=== PATIENT | female | born 1980 | race Caucasian/White ===

== ENCOUNTER 2018-09-03 12:17 | Emergency (ER) | payer BC ==
--- NOTE | 2018-09-03 13:49 | RAD REPORT ---
EXAM DESCRIPTION: US - Extremity Venous Uni Ltd - 09/03/2018 1:38 pm CLINICAL HISTORY: Pain;Swelling Leg swelling and edema. COMPARISON: No comparisons FINDINGS: Right lower extremity venous system was interrogated with Doppler technique. Normal flow, compressibility and augmentation was noted. There is no DVT present. IMPRESSION: No evidence of right lower extremity deep venous thrombosis.
--- NOTE | 2018-09-03 14:48 | ER ---
Nurse's Notes [facility] Name: Gloria Davidson Age: 37 yrs Sex: Female : 1980 Arrival Date: 09/03/2018 Time: 12:23 Bed 10 Private MD: None, None Diagnosis: Pain in right lower leg Presentation: 09/03 12:43 Presenting complaint: Patient states: right calf pain that began 2-3 days ago. Pt aa5 states "I think I have a blood clot". Pt states "I took a road trip to [place] and back". Transition of care: patient was not received from another setting of care. Onset of symptoms was August 2018. Risk Assessment: Do you want to hurt yourself or someone else? Patient reports no desire to harm self or others. Initial Sepsis Screen: Does the patient meet any 2 criteria? No. Patient's initial sepsis screen is negative. Does the patient have a suspected source of infection? No. Patient's initial sepsis screen is negative. Care prior to arrival: None. 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 - Social history:: Smoking status: Patient/guardian denies using tobacco. - Ebola Screening: : No symptoms or risks identified at this time. - Family history:: not pertinent. - Hospitalizations: : No recent hospitalization is reported. Screenin:17 Abuse screen: Denies threats or abuse. Nutritional screening: No deficits noted. la1 Tuberculosis screening: No symptoms or risk factors identified. Fall Risk None identified. Assessment: 14:16 General: Appears in no apparent distress. Behavior is calm, cooperative. Pain: Denies la1 pain. Neuro: Level of Consciousness is awake, alert, obeys commands, Oriented to person, place, time, situation. Cardiovascular: Capillary refill < 3 seconds Patient's skin is warm and dry. Respiratory: Airway is patent Respiratory effort is even, unlabored, Respiratory pattern is regular, symmetrical. GI: No signs and/or symptoms were reported involving the gastrointestinal system. : No signs and/or symptoms were reported regarding the genitourinary system. Musculoskeletal: Swelling present in lateral aspect of right calf. Vital Signs: 12:44 BP 135 / 84; Pulse 79; Resp 18 S; Temp 98.5(TE); Pulse Ox 100% on R/A; Weight 151.95 kg aa5 (R); Height 5 ft. 9 in. (175.26 cm) (R); Pain 5/10; 12:44 Body Mass Index 49.47 (151.95 kg, 175.26 cm) aa5 ED Course: 12:23 Patient arrived in ED. sb2 12:23 None, None is Private Physician. sb2 12:43 Arm band placed on. aa5 12:44 Triage completed. aa5 13:39 Extremity Venous Uni Ltd US In Process Unspecified. EDMS 14:05 Jorge Baez RN is Primary Nurse. la1 14:16 King Cantu MD is Attending Physician. rn 14:17 Call light in reach. la1 15:02 No provider procedures requiring assistance completed. Patient did not have IV access la1 during this emergency room visit. Administered Medications: No medications were administered Outcome: 14:48 Discharge ordered by . rn 15:03 Discharged to home ambulatory. la1 15:03 Condition: stable 15:03 Discharge instructions given to patient, Instructed on discharge instructions, follow up and referral plans. medication usage, Demonstrated understanding of instructions, follow-up care, medications, Prescriptions given X 1. 15:03 Patient left the ED. la1 Signatures: Dispatcher [employer] EDAZ King Cantu MD MD rn Calderon, Audri RN RN aa5 Jorge Baez RN RN la1 Kathleen Ace sb2
--- NOTE | 2018-09-03 14:49 | EDPHYS ---
Physician Documentation [facility] Name: Gloria Davidson Age: 37 yrs Sex: Female : 1980 Arrival Date: 09/03/2018 Time: 12:23 Bed 10 Private MD: None, None ED Physician King Cantu HPI: 09/03 14:30 This 37 yrs old Female presents to ER via Ambulatory with complaints of Poss rn Blood Clot. 14:30 The patient presents with pain. The complaints affect the right calf. rn 14:30 Onset: The symptoms/episode began/occurred 2 day(s) ago. Severity of symptoms: At their rn worst the symptoms were moderate, in the emergency department the symptoms are unchanged. The patient has not experienced similar symptoms in the past. The patient has not recently seen a physician. REports took long road trip recently, next day fell asleep in bathtub with leg propped out of bath for approx 1 hour, noted later to have right leg/calf pain, no swelling, hurts to touch and walk. . 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 - Social history:: Smoking status: Patient/guardian denies using tobacco. - Ebola Screening: : No symptoms or risks identified at this time. - Family history:: not pertinent. - Hospitalizations: : No recent hospitalization is reported. ROS: 14:30 Constitutional: Negative for fever, chills, and weight loss, Cardiovascular: Negative rn for chest pain, palpitations, and edema, Respiratory: Negative for shortness of breath, cough, wheezing, and pleuritic chest pain, Abdomen/GI: Negative for abdominal pain, nausea, vomiting, diarrhea, and constipation, Back: Negative for injury and pain, MS/Extremity: + RLE pain Skin: Negative for injury, rash, and discoloration, Neuro: Negative for headache, weakness, numbness, tingling, and seizure. Exam: 14:30 Constitutional: This is a well developed, well nourished patient who is awake, alert, rn and in no acute distress. Skin: Warm, dry with normal turgor. Normal color with no rashes, no lesions, and no evidence of cellulitis. MS/ Extremity: Pulses equal, no cyanosis. Mild tenderness without mass/discoloration/warmth/redness to right calf. Neuro: Awake and alert, GCS 15, oriented to person, place, time, and situation. Sensory grossly intact. Vital Signs: 12:44 BP 135 / 84; Pulse 79; Resp 18 S; Temp 98.5(TE); Pulse Ox 100% on R/A; Weight 151.95 kg aa5 (R); Height 5 ft. 9 in. (175.26 cm) (R); Pain 5/10; 12:44 Body Mass Index 49.47 (151.95 kg, 175.26 cm) aa5 MDM: 14:16 Patient medically screened. rn 14:30 Differential diagnosis: DVT, pinched nerve, local inflammation, muscle contusion. Data rn reviewed: vital signs, nurses notes, radiologic studies, and as a result, I will discharge patient. Counseling: I had a detailed discussion with the patient and/or guardian regarding: the historical points, exam findings, and any diagnostic results supporting the discharge/admit diagnosis, radiology results, the need for outpatient follow up, to return to the emergency department if symptoms worsen or persist or if there are any questions or concerns that arise at home. Special discussion: I discussed with the patient/guardian in detail that at this point there is no indication for admission to the hospital. It is understood, however, that if the symptoms persist or worsen the patient needs to return immediately for re-evaluation. ED course: DVT study negative, good pulses, no discoloration. 09/03 12:49 Order name: Extremity Venous Uni Ltd ; Complete Time: 14:17 rn Administered Medications: No medications were administered Disposition: 09/03/18 14:48 Discharged to Home. Impression: Pain in right lower leg. - Condition is Stable. - Discharge Instructions: Musculoskeletal Pain, Pain Without a Known Cause. - Prescriptions for Medrol (Hiro) 4 mg Oral Tablets, Dose Pack - take 1 tablet by ORAL route as directed - follow package instructions; 1 packet. - Medication Reconciliation Form, Thank You Letter, Antibiotic Education, Prescription Opioid Use, Work release form form. - Follow up: Private Physician; When: As needed; Reason: Recheck today's complaints, Re-evaluation by your physician. - Problem is new. - Symptoms have improved. Signatures: Dispatcher [employer] EDKing Steel MD MD rn Calderon, Audri, RN RN aa5 Jorge Baez RN RN la1 Corrections: (The following items were deleted from the chart) 15:03 14:48 09/03/2018 14:48 Discharged to Home. Impression: Pain in right lower leg. la1 Condition is Stable. Forms are Medication Reconciliation Form, Thank You Letter, Antibiotic Education, Prescription Opioid Use. Follow up: Private Physician; When: As needed; Reason: Recheck today's complaints, Re-evaluation by your physician. Problem is new. Symptoms have improved. rn
== END 2018-09-03 15:03 | disposition home or self-care (01) ==
LOC: ER 12:17
DX: M79.661 Pain in right lower leg (principal)
CPT/HCPCS: 93971; 99283